=== PATIENT | female | born 1975 | race Caucasian/White ===

== ENCOUNTER 2018-03-07 09:35 | Outpatient (CLI) | payer OTHER | END 2018-03-07 09:40 | disposition home or self-care (01) | LOC: RAD 09:35 | DX: E06.1 Subacute thyroiditis (principal); R10.9 Unspecified abdominal pain; Z68.23 Body mass index [BMI] 23.0-23.9, adult; I51.7 Cardiomegaly; I11.9 Hypertensive heart disease without heart failure; K80.00 Calculus of gallbladder with acute cholecystitis without obstruction; K74.60 Unspecified cirrhosis of liver; R10.84 Generalized abdominal pain ==

== ENCOUNTER → 2018-03-15 | Outpatient (CLI) | payer OTHER | END | disposition home or self-care (01) | LOC: TOM 09:56 | DX: R06.09 Other forms of dyspnea (principal); R07.1 Chest pain on breathing ==

== ENCOUNTER 2018-10-24 09:06 | Outpatient (CLI) | payer OTHER | END 2018-10-24 09:15 | disposition home or self-care (01) | LOC: RX STUDY 09:06 | DX: K56.51 Intestinal adhesions [bands], with partial obstruction (principal) ==